=== PATIENT | male | born 1970 | race Caucasian/White ===

== ENCOUNTER 2016-12-29 04:26 | Emergency (ER) | payer OTHER ==
[~2016-12-29] VITALS: Ht 190.5 cm; Wt 116.7 kg
[~2016-12-29 04:26] MED LIST: ALBU6.7H INH; BENZ100 PO; CETI10 PO; HYDROMET PO; OMEP20TA39 PO; PRED10 PO; ZITH250T PO
[2016-12-29 04:39] VITALS: BP 138/80; PULSE 65; RESP 18; TEMP 98; O2SAT 98
[2016-12-29] MEDS ORDERED: RESP: ALBUTEROL 2.5 MG/3 ML NEB (SCH) INH (05:15)
[2016-12-29] MEDS: RESP: ALBUTEROL 2.5 MG/IPRATROPIUM 0.5 MG NEB (SCH) INH (05:17)
[2016-12-29 05:41] VITALS: BP 123/79; PULSE 77; RESP 18; O2SAT 100
--- NOTE | 2016-12-29 05:41 | PD ---
HPI Chief Complaint: Cold / Flu Symptoms Time Seen by Provider: 05:03 Travel History International Travel<30 days: No Contact w/Intl Traveler<30days: No Traveled to known affect area: No History of Present Illness HPI The patient is a 46-year-old male, smoker of approximately one half pack a day, who for the past 7 days has been having a cough, chest congestion, rhinorrhea without shortness of breath. He denies any chest pain or fever. He denies any nausea, vomiting or diarrhea. He is already completed a Z-Bridger given to him by his primary care physician yesterday. He was given an albuterol puffer but states he is no better. He denies any hemoptysis. He denies any headache or myalgias. Yesterday he was cleaning the bathroom and bleach and undoubtedly inhaled the bleach from this enclosed space. [facility] Past Medical History Diminished Hearing: No GERD: Yes Immunizations Current: Yes Tetanus Vaccination: Unknown Influenza Vaccination: Yes Social History Alcohol Use: Yes (wine occ) Tobacco Use: Yes (1 ppd) Substance Use: No Allergies-Medications (Allergen,Severity, Reaction): Coded Allergies: Iodine (Verified Allergy, Severe, Hives, 12/29/16) Reported Meds & Prescriptions Reported Meds & Active Scripts Active Duoneb (Ipratropium-Albuterol Neb) 0.5-2.5 Mg/3 Ml Neb 1 Nebule INH Q6HR NEB Review of Systems Except as stated in HPI: all other systems reviewed are Neg Physical Exam Narrative GENERAL: The patient is alert, oriented 3 in no respiratory distress. Vital signs are normal with 98% oximetry on room air. SKIN: Warm and dry. HEAD: Atraumatic. Normocephalic. EYES: Pupils equal and round. No scleral icterus. No injection or drainage. ENT: No nasal bleeding or discharge. Mucous membranes pink and moist. NECK: Trachea midline. No JVD. CARDIOVASCULAR: Regular rate and rhythm. No murmur appreciated. RESPIRATORY: No accessory muscle use. Clear to auscultation. Breath sounds equal bilaterally. GASTROINTESTINAL: Abdomen soft, non-tender, nondistended. Hepatic and splenic margins not palpable. MUSCULOSKELETAL: No obvious deformities. No clubbing. No cyanosis. No edema. NEUROLOGICAL: Awake and alert. No obvious cranial nerve deficits. Motor grossly within normal limits. Normal speech. PSYCHIATRIC: Appropriate mood and affect; insight and judgment normal. Data Data Last Documented VS Vital Signs Date Time Temp Pulse Resp B/P Pulse Ox O2 Delivery O2 Flow Rate FiO2 12/29/16 05:41 77 18 123/79 100 Aerosol Mask 12/29/16 04:39 98.0 Orders Influenzae A/B Antigen (12/29/16 05:03) Chest, Pa & Lat (12/29/16 05:03) Albuterol-Ipratropium Neb (Duoneb Neb) (12/29/16 05:15) MDM Medical Decision Making Medical Screen Exam Complete: Yes Emergency Medical Condition: Yes Medical Record Reviewed: Yes Differential Diagnosis Bronchitis with bronchospasm, viral syndrome with bronchospasm, pneumonia, hypoxemia Narrative Course The patient has viral syndrome with bronchospasm. He did get good relief with the DuoNeb treatments. The patient will be prescribed a nebulizer and DuoNebs. He is to quit smoking. Diagnosis Primary Impression: Viral syndrome Additional Impression: Bronchospasm Additional Instructions: Has we discussed, it is necessary to first quit smoking. Use the nebulizer every 4 hours as needed for shortness of breath/chest congestion. Follow-up with your primary care physician next week. Med/Other Pt SpecificInfo: Prescription(s) given Scripts Ipratropium-Albuterol Neb (Duoneb)0.5-2.5 Mg/3 Ml Neb1 Nebule INH Q6HR NEB #60 NEBULE Ref 0 Prov:Antonio Ziegler MD 12/29/16 Disposition: 01 DISCHARGE HOME Condition: Stable Antonio Ziegler MD Dec 29, 2016 05:41
[2016-12-29] MEDS ORDERED: IPRASOL INH (06:11)
--- NOTE | 2016-12-29 06:33 | RADHPO ---
EXAM DATE/TIME: 12/29/2016 05:44 [place] COMPARISON: No previous studies available for comparison. INDICATIONS : Cough and shortness of breath. MEDICAL HISTORY : None. SURGICAL HISTORY : None. ENCOUNTER: Initial ACUITY: 1 week PAIN SCORE: 0/10 LOCATION: Bilateral chest FINDINGS: PA and lateral views of the chest demonstrate the lungs to be symmetrically aerated without evidence of mass, infiltrate or effusion. The cardiomediastinal contours are unremarkable. Osseous structure s are intact. CONCLUSION: Normal examination. Chapo García MD on December 29, 2016 at 6:31 Board Certified Radiologist. This report was verified electronically.
== END 2016-12-29 06:26 | disposition home or self-care (01) ==
LOC: PHED 04:26
DX: B34.9 Viral infection, unspecified (principal); J98.01 Acute bronchospasm; F17.210 Nicotine dependence, cigarettes, uncomplicated
CPT/HCPCS: 71020; 87804; 94640; 94664; 99283